=== PATIENT | female | born 1940 | race African-American/Black ===

== ENCOUNTER 2018-02-23 18:37 | Outpatient (CLI) | payer MEDICARE, OTHER ==
--- NOTE | 2018-02-25 08:54 | XRAY Report ---
Procedure Date: 02/23/2018 Accession Number: [id number] / [id number] Procedure: XR - Shoulder 3 View RT CPT Code: FULL RESULT: EXAM: RIGHT SHOULDER RADIOGRAPHY EXAM DATE: 02/23/2018 07:01 PM. CLINICAL HISTORY: Right shoulder pain. Right shoulder pain after fall 3 days. COMPARISON: None. TECHNIQUE: 3 views. FINDINGS: Bones: Normal. No fracture or bone lesion. Joints: Mild acromioclavicular and glenohumeral degenerative joint disease with mild osteophytes. Large bone spur extending inferiorly from the acromion, could contribute to impingement symptoms. No dislocation. Soft tissues: The visualized hemithorax is unremarkable. No soft tissue swelling. IMPRESSION: 1. No evidence for acute fracture. No dislocation. 2. Mild acromioclavicular and glenohumeral degenerative joint disease with mild osteophytes. Large bone spur extending inferiorly from the acromion, could contribute to impingement symptoms. RADIA
== END 2018-02-23 18:38 | disposition home or self-care (01) ==
LOC: DI 18:37
PROVIDERS: ATTEND Specialist
DX: M19.011 Primary osteoarthritis, right shoulder (principal); M75.81 Other shoulder lesions, right shoulder

== ENCOUNTER 2021-11-08 13:52 | Outpatient (CLI) | payer MEDICARE, OTHER ==
--- NOTE | 2021-11-08 16:44 | DEXA Report ---
PROCEDURE: Dexa Spine and/or Hip INDICATIONS: OSTEOPENIA TECHNIQUE: Dual energy x-ray absorptiometry (DXA) was performed on a [employer] System. Regions measur ed are the AP Spine, femoral neck, and if needed forearm. COMPARISON: 03/30/2016 FINDINGS: Lumbar Spine: Bone Mineral Density 1.387 g/cm/cm,T score 1.7, normal bone density Left Hip: Bone Mineral Density 0.912 g/cm/cm,T score -0.8, normal bone density Left Femoral Neck: Bone Mineral Density 0.869 g/cm/cm, T score -1.2, osteopenia (T score greater or equal to -1.0: NORMAL) (T score from -1.1 to -2.4: OSTEOPENIA) (T score less than or equal to -2.5 to: OSTEOPOROSIS) Impression: Osteopenia. Bone mineral density has decreased approximately 6.3% in the hip and decreased approximat carl 4.0% in the spine compared to prior study. Patients with diagnosis of osteoporosis or osteopenia should have regular bone mineral density assess ment. For those eligible for Medicare, routine testing is allowed once every 2 years. Testing frequ ency can be increased for patients who have rapidly progressing disease or for those who are receivin g medical therapy to restore bone mass. Reviewed by: Howie Tan MD on 11/08/2021 4:43 PM PST Approved by: Howie Tan MD on 11/08/2021 4:43 PM PST Station ID: [id number]
== END 2021-11-08 13:53 | disposition home or self-care (01) ==
LOC: DI 13:52
PROVIDERS: ATTEND Physician Assistant
DX: Z13.820 Encounter for screening for osteoporosis (principal); M85.88 Other specified disorders of bone density and structure, other site

== ENCOUNTER 2023-03-26 11:34 | Emergency (ER) | payer MEDICARE, OTHER ==
[2023-03-26 11:54] VITALS: BP 133/58
--- NOTE | 2023-03-26 12:42 | ED Physician Documentation ---
PD HPI LOWER EXT INJURY - Stated complaint Stated Complaint: RT HAND SWOLLEN - Chief complaint Chief Complaint: Ext Problem - History obtained from History obtained from: Patient, Family - Additional information Additional information: This is a larry 82-year-old woman who fell 3 weeks ago onto her right hand and has persistent pain in the lateral hand that radiates up towards the wrist. No other injuries. She does need a new walker as her current walker is not working well for her. She is here with a supportive family. 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 - Present Medications Home Medications: Ambulatory Orders Medication Instructions Recorded Confirmed Aspirin [Aspir 81] 81 mg PO 04/16/13 04/16/13 Celecoxib [CeleBREX] 200 mg PO DAILY 04/16/13 04/16/13 Docusate Sodium 100Mg Capsule 200 mg PO DAILY 04/16/13 04/16/13 [Colace] Gabapentin 300 mg 04/16/13 04/16/13 Hydrocodone/Acetaminophen PRN 04/16/13 04/16/13 [Hydrocodon-Acetaminoph 7.5-500] Meclizine [Antivert] 25 mg PO Q6H 04/16/13 04/16/13 Montelukast Sodium [Singulair] 10 mg PO 04/16/13 04/16/13 Simvastatin [Zocor] 10 mg PO 04/16/13 04/16/13 Trazodone HCl 50 mg PO 04/16/13 04/16/13 lisinopriL [Zestril] 10 mg PO DAILY 04/16/13 04/16/13 Albuterol Oral Soln [Ventolin] PRN 04/17/13 04/17/13 glipiZIDE [Glucotrol] 04/17/13 04/17/13 - Allergies Allergies/Adverse Reactions: Allergies Allergy/AdvReac Type Severity Reaction Status Date / Time No Known Drug Allergies Allergy Verified 03/26/23 11:51 PD ED PE NORMAL - Vitals Vital signs reviewed: Yes - General General: Alert and oriented X 3, No acute distress - Extremities Extremities: Other (She has a lot of tenderness of the right MCP but not in the snuffbox. She does seem to have UCL laxity and a lot of pain with UCL testing.) - Neuro Neuro: Alert and oriented X 3, Normal speech Results - Vitals Vitals: Vital Signs - 24 hr 03/26/23 11:44 Temperature 36.3 C L Heart Rate 73 Respiratory 18 Rate Blood Pressure 133/58 H O2 Saturation 98 Oxygen O2 Source Room air - Rads (name of study) XR R hand/wrist Relevant Findings:: Final report received, EMP independent interpretation of test Procedures - Splint (location) - Minor R hand Splint applied by: Tech Type of splint: Fiberglass, Short arm, Thumb spica Other: Patient tolerated well, No complications, Neurovascular intact PD Medical Decision Making - ED course ED course: X-rays were negative for fracture, but I suspect she may have a UCL tear/"gamekeeper's thumb. As such she was placed into a thumb spica splint and referred to hand for follow-up. Departure - Departure Disposition: 01 Home, Self Care Clinical Impression: Injury of UCL of right wrist Qualifiers: Encounter type: initial encounter Qualified Code(s): S66.801A - Unspecified injury of other specified muscles, fascia and tendons at wrist and hand level, right hand, initial encounter Condition: Good Record reviewed to determine appropriate education?: Yes Instructions: ED Sprain Wrist Follow-Up: Rylan Bernardo MD [Physician No Access] - Comments: As discussed, I suspect you have a ulnar collateral ligament injury which merits follow-up with a hand surgeon. Keep the splint on and dry until you follow-up. Call his office today or tomorrow for an appointment. Return for new or worsening symptoms. Tylenol per package instructions for pain.
--- NOTE | 2023-03-26 13:32 | XRAY Report ---
PROCEDURE: Hand 3 View RT INDICATIONS: Trauma TECHNIQUE: 3 views of the hand(s) acquired. COMPARISON: None. FINDINGS: Bones: No fractures or dislocations. Osteoarthritic changes are noted throughout right hand and wris t joints more notably at first CMC joint. No suspicious bony lesions. Soft tissues: No suspicious soft tissue calcifications or masses. IMPRESSION: No acute bony abnormality. Mild to moderate right hand and wrist joint osteoarthritis. Reviewed by: Timoteo Herrera MD on 03/26/2023 12:21 PM PDT Approved by: Timoteo Herrera MD on 03/26/2023 12:21 PM PDT Station ID: [id number]
--- NOTE | 2023-03-26 13:32 | XRAY Report ---
PROCEDURE: Wrist 4 View RT INDICATIONS: Trauma TECHNIQUE: 3 views of the wrist were acquired. COMPARISON: None. FINDINGS: Bones: No fractures or dislocations. Moderate first CMC joint osteoarthritis is seen. No suspicious bony lesions. Soft tissues: No suspicious soft tissue calcifications or masses. IMPRESSION: No acute bony abnormality. Moderate first CMC joint osteoarthritis. Reviewed by: Timoteo Herrera MD on 03/26/2023 12:20 PM PDT Approved by: Timoteo Herrera MD on 03/26/2023 12:20 PM PDT Station ID: [id number]
== END 2023-03-26 13:32 | disposition home or self-care (01) ==
LOC: ED 11:34
DX: S66.801A Unspecified injury of other specified muscles, fascia and tendons at wrist and hand level, right hand, initial encounter (principal); W19.XXXA Unspecified fall, initial encounter
CPT/HCPCS: 99283

== ENCOUNTER 2023-03-29 18:59 | Emergency (ER) | payer MEDICARE, OTHER ==
--- NOTE | 2023-03-29 19:23 | ED Physician Documentation ---
PD HPI UPPER EXT INJURY - Stated complaint Stated Complaint: BILAT HAND NUMB - Chief complaint Chief Complaint: Ext Problem - History obtained from History obtained from: Patient, Family - Additonal information Additional information: She was seen by me on the of this month after an injury to the hand and I suspected she had a UCL injury of the right wrist with negative x-rays. She was placed into a splint and now has more pain and shocklike sensation in that wrist. 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 - Present Medications Home Medications: Ambulatory Orders Medication Instructions Recorded Confirmed Aspirin [Aspir 81] 81 mg PO DAILY 04/16/13 04/16/13 Celecoxib [CeleBREX] 200 mg PO DAILY 04/16/13 04/16/13 Docusate Sodium 100Mg Capsule 200 mg PO DAILY 04/16/13 04/16/13 [Colace] Gabapentin 300 mg PO DAILY 04/16/13 04/16/13 Montelukast Sodium [Singulair] 10 mg PO DAILY 04/16/13 04/16/13 Simvastatin [Zocor] 10 mg PO DAILY 04/16/13 04/16/13 Trazodone HCl 50 mg PO DAILY 04/16/13 04/16/13 lisinopriL [Zestril] 10 mg PO DAILY 04/16/13 04/16/13 Albuterol Oral Soln [Ventolin] 1 - 2 puffs INH Q4HR PRN 04/17/13 04/17/13 glipiZIDE [Glucotrol] 1 cap PO DAILY 04/17/13 04/17/13 - Allergies Allergies/Adverse Reactions: Allergies Allergy/AdvReac Type Severity Reaction Status Date / Time No Known Drug Allergies Allergy Verified 03/29/23 19:11 PD ED PE NORMAL - Vitals Vital signs reviewed: Yes - General General: No acute distress, Other (With some memory difficulties) - Derm Derm: Normal color, Warm and dry - Extremities Extremities: Other (I took down her splint, the hand is mildly swollen but looking not too bad. Cap refill in the fingers is normal as is sensation.) Results - Vitals Vitals: Vital Signs - 24 hr 03/29/23 19:01 Temperature 37.1 C Heart Rate 86 Respiratory 18 Rate Blood Pressure 124/60 Oxygen O2 Source Room air Procedures - Splint (location) - Minor RUE Splint applied by: Physician Type of splint: Fiberglass, Short arm, Thumb spica Other: Patient tolerated well, No complications, Neurovascular intact PD Medical Decision Making - ED course ED course: Her splint was taken down and her hand was reexamined. Swelling was better than it was the other day. She was drying oven tender in the same area. Good cap refill and sensation throughout the fingers. It did not seem like the original splint was actually too tight but it was replaced with another thumb spica short arm fiberglass splint. She has appropriate follow-up and has arranged to see Dr. Barron for hand surgery consultation on Sunday in [place]. Departure - Departure Disposition: 01 Home, Self Care Clinical Impression: Injury of UCL of right wrist Qualifiers: Encounter type: initial encounter Qualified Code(s): S66.801A - Unspecified injury of other specified muscles, fascia and tendons at wrist and hand level, right hand, initial encounter Condition: Good Record reviewed to determine appropriate education?: Yes Instructions: Skier's Thumb Comments: Keep the splint on and dry, return for new or worsening symptoms. Continue your follow-up plan with Dr. Barron on Sunday in [place].
[2023-03-29 20:15] VITALS: BP 118/62
== END 2023-03-29 20:10 | disposition home or self-care (01) ==
LOC: ED 18:59
DX: S66.901A Unspecified injury of unspecified muscle, fascia and tendon at wrist and hand level, right hand, initial encounter (principal); X58.XXXA Exposure to other specified factors, initial encounter; I10 Essential (primary) hypertension; E78.00 Pure hypercholesterolemia, unspecified; E11.9 Type 2 diabetes mellitus without complications; Z79.82 Long term (current) use of aspirin; Z79.84 Long term (current) use of oral hypoglycemic drugs; Z79.899 Other long term (current) drug therapy
CPT/HCPCS: 29125; 99281; 99283

== ENCOUNTER 2023-12-22 09:43 | Outpatient (CLI) | payer MEDICARE, OTHER ==
--- NOTE | 2023-12-22 18:11 | Ultrasound Report ---
PROCEDURE: Renal (Retroperitoneal) INDICATIONS: CKD TECHNIQUE: Real-time scanning was performed of the retroperitoneal organs, with image documentation. COMPARISON: None. FINDINGS: Kidneys: Kidneys are normal in size. Right kidney measures 8.3 cm long; left kidney measures 7.3 cm long. Right renal cortical thickness is 0.6 cm; left renal cortical thickness is 1 cm. No solid ma sses, hydronephrosis, or nephrolithiasis. Exophytic left lower pole cyst measuring 1 cm. Bladder: Pre-void bladder volume is 64 mL. Post-void residual is 11 mL. Pre-void images demonstrat e no intraluminal masses or stones. On pre-void images, bilateral ureteral jets are noted with color Doppler interrogation. (Of note, ureteral jets may not be detectable in up to 25% of cases due to i nsufficient differences in specific gravity between ureteral and bladder urine). Miscellaneous: No free abdominal fluid. IMPRESSION: Small bilateral kidneys with mild cortical atrophy of the right kidney. Reviewed by: Cem Houston MD on 12/22/2023 5:10 PM AKDEJON Approved by: Cem Houston MD on 12/22/2023 5:10 PM AKDT Station ID: [id number]
== END 2023-12-22 09:44 | disposition home or self-care (01) ==
LOC: DI 09:43
PROVIDERS: ATTEND Physician Assistant
DX: N18.32 Chronic kidney disease, stage 3b (principal); N26.1 Atrophy of kidney (terminal)

== ENCOUNTER 2023-12-24 15:54 | Outpatient (CLI) | payer MEDICARE, OTHER ==
--- NOTE | 2023-12-24 17:58 | MRI Report ---
PROCEDURE: Lumbar Spine WO INDICATIONS: LOW BACK PAIN TECHNIQUE: Noncontrast sagittal T1 spin echo and T2 fast echo, sagittal STIR, axial T1 and T2 fast spin echo thr ough the lumbar spine. In cases with scoliosis, additional coronal T2 fast spin echo may be performe d. COMPARISON: None. FINDINGS: Image quality: Motion artifact is noted. Alignment and Curvature: There is minimal anterolisthesis seen at the L4-L5 level. Minimal retrolist hesis can be seen at L5-S1. Bone Marrow: Marrow is of normal overall signal. No acute vertebral body compression fractures. Spinal Cord: Conus medullaris terminates at the L1 level. Visualized cord demonstrates normal signa l and size. Paraspinous Soft Tissues: No paravertebral masses. T12-L1: No significant abnormality is seen. L1-L2: Moderate loss of disc height and signal are seen. Mild to moderate disc bulge is seen, with a mild central disc protrusion. At least moderate facet hypertrophy is seen. Associated hypertrophy of the ligamentum flavum can be seen. Fluid is seen within the right facet joint. There is at least m oderate bilateral neuroforaminal narrowing seen. Moderate central canal narrowing is seen. L2-L3: Moderate disc bulge and moderate disc bulge is seen, with a central disc protrusion. React lori marrow endplate changes are seen posteriorly, which are hyperintense on T1-weighted and T2-weight ed imaging, without significant increased STIR signal. These imaging findings are most consistent wit h fatty metaplasia (Modic type 2 change). Moderate facet hypertrophy is seen. Moderate bilateral ne ural foraminal narrowing is seen. Mild to moderate central canal narrowing is seen. L3-L4: Moderate loss of disc height and signal are seen. Moderate disc bulge is seen, which is ecce ntric to the right side. There is a right foraminal disc protrusion, as on series 6 image 26 and on s eries 3 image 7. Moderate facet hypertrophy is seen. There is moderate left-sided and moderate to s evere right-sided neuroforaminal narrowing. There is a degree of compression seen upon the exiting ri ght L3 nerve root. L4-L5: Mild loss of disc height and disc signal are seen. Mild to moderate disc bulge is seen, with a mild central disc protrusion. At least moderate facet hypertrophy is seen. There is at least moder ate right-sided and moderate to severe left-sided neuroforaminal narrowing. At least moderate central canal narrowing is seen. At least moderate loss of disc height and disc signal can be seen. L5-S1: At least moderate loss of disc height and disc signal can be seen. Reactive marrow endplate changes are seen anteriorly, which are on hypointense on T1-weighted and hyperintense T2-weighted im aging, with associated increased STIR signal. These imaging findings are most consistent with endplat e edema (Modic type 1 change). Moderate disc bulge is seen, with a central disc protrusion. At least moderate facet hypertrophy can be seen. Moderate to severe bilateral neural foraminal narrowing can b e seen, with associated compression upon the exiting nerve roots. Mild central canal narrowing is s een. 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 Reviewed by: Davidson Montero MD on 12/24/2023 4:57 PM ANTONIA Approved by: Davidson Montero MD on 12/24/2023 4:57 PM ANTONIA Station ID: [id number]
--- NOTE | 2023-12-24 18:09 | CT Report ---
PROCEDURE: Head WO INDICATIONS: COGNITIVE DECLINE TECHNIQUE: Noncontrast 4.5 mm thick angled axial sections acquired from the foramen magnum to the vertex. For r adiation dose reduction, the following was used: automated exposure control, adjustment of mA and/or kV according to patient size. COMPARISON: None. FINDINGS: Image quality: There is streak artifact from the metallic hairpins. CSF spaces: Basal cisterns are p atent. No extra-axial fluid collections. Ventricles are normal in size and shape. Brain: No midline shift. No intracranial masses or hemorrhage. Webb-white matter interface is norm al. Age-appropriate brain parenchymal volume loss and chronic small vessel ischemic change can be se en. Skull and face: Calvarium and visualized facial bones are intact, without suspicious lesions. Hyper ostosis frontalis is incidentally noted, which is not frankly abnormal for a female patient of this a ge. Sinuses: Visualized sinuses and mastoids are clear. IMPRESSION: Noncontrast head CT within normal limits for age. Reviewed by: Davidson Montero MD on 12/24/2023 5:07 PM ANTONIA Approved by: Davidson Montero MD on 12/24/2023 5:07 PM ANTONIA Station ID: [id number]
== END 2023-12-24 15:55 | disposition home or self-care (01) ==
LOC: DI 15:54
PROVIDERS: ATTEND Physician Assistant
DX: M54.50 Low back pain, unspecified (principal); R41.89 Other symptoms and signs involving cognitive functions and awareness; R53.1 Weakness; R32 Unspecified urinary incontinence; M47.816 Spondylosis without myelopathy or radiculopathy, lumbar region; M47.817 Spondylosis without myelopathy or radiculopathy, lumbosacral region

== ENCOUNTER 2024-01-17 12:40 | Outpatient (CLI) | payer MEDICARE, OTHER ==
--- NOTE | 2024-01-17 15:36 | DEXA Report ---
PROCEDURE: Dexa Spine and/or Hip INDICATIONS: OSTEOPENIA TECHNIQUE: Dual energy x-ray absorptiometry (DXA) was performed on a [employer] System. Regions measur ed are the AP Spine, femoral neck, and if needed forearm. COMPARISON: DEXA 11/20/2021, 03/22/2016 FINDINGS: Lumbar Spine: Bone Mineral Density: 1.319 g/cm/cm,T score: 1.2. Since the most recent prior study, there has been a statistically significant decrease in bone mineral density by 4.9 percent. Left Femoral Neck: Bone Mineral Density: 0.803 g/cm/cm, T score: -1.7. Left Hip: Bone Mineral Density: 0.828 g/cm/cm,T score: -1.4. Since the most recent prior study, there has been a statistically significant decrease in bone mineral density by 9 point percent. (T score greater or equal to -1.0: NORMAL) (T score from -1.1 to -2.4: OSTEOPENIA) (T score less than or equal to -2.5 to: OSTEOPOROSIS) Impression: By WHO criteria, this patient has low bone density (osteopenia). Interval statistical decrease in bone mineral density of the lumbar spine. Interval statistical decre ase in bone mineral density of the hip. Patients with diagnosis of osteoporosis or osteopenia should have regular bone mineral density assess ment. For those eligible for Medicare, routine testing is allowed once every 2 years. Testing frequ ency can be increased for patients who have rapidly progressing disease or for those who are receivin g medical therapy to restore bone mass. Reviewed by: Joselyn Laurent MD, PhD on 01/17/2024 3:35 PM PDT Approved by: Joselyn Laurent MD, PhD on 01/17/2024 3:35 PM PDT Station ID: [id number]
== END 2024-01-17 12:41 | disposition home or self-care (01) ==
LOC: DI 12:40
PROVIDERS: ATTEND Physician Assistant
DX: M85.89 Other specified disorders of bone density and structure, multiple sites (principal)